=== PATIENT | male | born 1960 | race Caucasian/White ===

== ENCOUNTER 2019-05-31 12:36 | Day surgery (SDC) | payer BC ==
[2019-05-27 15:04] VITALS: BMI 41.1
[~2019-05-31 12:36] MED LIST: LACTATED RINGERS 1,000 ML IV SCH
[2019-05-31 12:58] VITALS: TEMP 98.4
[2019-05-31] MEDS ORDERED: LIDOCAINE 1% 20 ML VIAL (10MG/ML) FOR IV START INTRADERMA ONE (13:02)
[2019-05-31] MEDS ORDERED: PROPOFOL 10 MG/ML 20 ML VIAL IV ONE (14:27)
[2019-05-31] MEDS ORDERED: IV FLUID CONTINUATION 300 ML IV ONE (15:02)
--- NOTE | 2019-05-31 15:03 | P.PCN ---
Date of Procedure: 05/31/19 Description of Procedure: BRIEF HISTORY: Patient is a 59-year-old pleasant male scheduled for an elective colonoscopy as a part of screening for malignant neoplasm colon. He reports last colonoscopy 5 or 6 years ago. Prior episodes of polypectomy. Denies any change in bowel habits, blood per rectum or abdominal pain. PROCEDURE PERFORMED: Colonoscopy. PREOPERATIVE DIAGNOSIS: Screening for malignant neoplasm colon, last colonoscopy approximately 5 or 6 years ago, reports prior history of polypectomy. ESTIMATED BLOOD LOSS: Minimal. IV sedation per Anesthesia. PROCEDURE: After informed consent was obtained, the patient, was brought into the endoscopy unit. IV sedation was administered by Anesthesia under continuous monitoring. Digital rectal examination was normal. Initially the Olympus CF-190 flexible video colonoscope was then inserted in the rectum, gradually advanced into the cecum without any difficulty. Careful examination was performed as the scope was gradually being withdrawn. Ileocecal valve and the appendiceal orifice were visualized and appeared normal. Prep was excellent. Mucosa of the cecum, ascending colon, transverse colon, descending colon, sigmoid colon, and rectum appeared normal. Retroflexion was performed in the rectum and no lesions were seen. The patient tolerated the procedure well. IMPRESSION: Normal-appearing colon from rectum to cecum. RECOMMENDATIONS: Findings of this examination were discussed with the patient and his family. Okay to resume diet. Okay to resume medications. Would recommend repeat colonoscopy in 5 years given the reported history of colon polyps.
[2019-05-31 15:30] VITALS: BP 145/80; PULSE 60; RESP 18
== END 2019-05-31 15:43 | disposition home or self-care (01) ==
LOC: ORWHC2ENDO 12:36
PROVIDERS: ATTEND Internal Medicine
DX: Z12.11 Encounter for screening for malignant neoplasm of colon (principal); J45.909 Unspecified asthma, uncomplicated; G43.909 Migraine, unspecified, not intractable, without status migrainosus; Z86.010 Personal history of colon polyps; Z79.82 Long term (current) use of aspirin; Z79.899 Other long term (current) drug therapy; Z87.891 Personal history of nicotine dependence; Z90.49 Acquired absence of other specified parts of digestive tract; Z90.89 Acquired absence of other organs
CPT/HCPCS: J2704; G0105

== ENCOUNTER → 2020-06-12 | Outpatient (CLI) | payer BC ==
--- NOTE | 2020-06-12 20:22 | MR ---
EXAMINATION TYPE: MR pituitary wo/w con DATE OF EXAM: 06/12/2020 COMPARISON: NONE HISTORY: Hyperprolactinemia TECHNIQUE: Multiplanar, multisequence images of the brain and brainstem is performed without and with IV contras t, utilizing 14.5 mL intravenous Gadavist . The pituitary gland protocol. FINDINGS: Pituitary gland normal in size within sella turcica. Pituitary stalk shows normal enhanceme nt in the midline. Suprasellar cistern is maintained. Postcontrast images show no focal areas of none nhancement to suggest microadenoma. Optic chiasm is not effaced. No gross hydrocephalus. Brain volume age appropriate. IMPRESSION: No MRI evidence for pituitary microadenoma or macroadenoma.
== END | disposition home or self-care (01) ==
LOC: RADMRIMAIN 16:58
PROVIDERS: ATTEND Urology
DX: E22.1 Hyperprolactinemia (principal)
CPT/HCPCS: 70553; A9585

== ENCOUNTER 2022-05-01 06:51 | Day surgery (SDC) | payer BC ==
[~2022-05-01 06:51] MED LIST changes: -LACTATED RINGERS 1,000 ML IV SCH; +MOXIFLOXACIN HCL 0.5% DROPS 3 ML BTL OP PRN; +TETRACAINE 0.5% OPHTH (PF) DROPS 4 ML BTL OP PRN; +TIMOLOL 0.5% OPHTH DROPS 5 ML BTL OP PRN
[2022-05-01 07:15] VITALS: TEMP 98.5
[2022-05-01] MEDS: CYCLOPENTOLATE 1% OPHTH SOLN 2 ML BTL OP PRN ×2 (07:23→11:56)
[2022-05-01] MEDS: PHENYLEPHRINE 2.5% OPHTH DRP 2ML OP PRN ×2 (07:26→11:59)
[2022-05-01] MEDS: LACTATED RINGERS 1,000 ML IV SCH ×2 (07:37→12:10)
[2022-05-01] MEDS ORDERED: GLYCOPYRROLATE 0.2 MG/ML 2 ML VIAL ONE (12:08)
[2022-05-01] MEDS ORDERED: MIDAZOLAM 2 MG/2 ML VIAL ONE (12:08)
[2022-05-01] MEDS ORDERED: fentaNYL (PF) 50 MCG/ML 2 ML AMP ONE (12:08)
[2022-05-01] MEDS ORDERED: EPINEPHrine (PF) 0.3 ML in BALANCED SALT IRRIG SOLN COMB2 500 ML IRRIGATION ONE (12:10)
[2022-05-01] MEDS ORDERED: BALANCED SALT IRRIG SOLN COMB2 15 ML IRRIG.SOLN INTRAOCULA ONE (12:11)
[2022-05-01] MEDS ORDERED: HYALURONATE SODIUM INTRAOCULAR 1 EACH SYRINGE (12MG/ML) INTRAOCULA ONE (12:11)
[2022-05-01] MEDS ORDERED: LIDOCAINE 1% (PF) 10MG/ML VIAL MISCELLANE ONE (12:11)
--- NOTE | 2022-05-01 12:47 | P.OP ---
Date of Procedure: 05/01/22 Preoperative Diagnosis: NS & PSC Postoperative Diagnosis: same Procedure(s) Performed: PIOL< OS Implants: [id number] x 2.00 Anesthesia: MAC Surgeon: Sravan Alicia Pathology: none sent Condition: stable Disposition: same day Indications for Procedure: blurry vision Operative Findings: no complications
[2022-05-01] MEDS ORDERED: ATROPINE OPHTH SOLN 1% 5ML BTL LEFT EYE ONE (12:48)
[2022-05-01 13:07] VITALS: BP 114/78; PULSE 52; RESP 18
--- NOTE | 2022-05-02 16:30 | OP ---
OPERATIVE REPORT PROCEDURE PERFORMED: Phacoemulsification of cataract and intraocular lens implant of the left eye. PREOPERATIVE DIAGNOSES: 1. Nuclear sclerosis and posterior subcapsular cataract. 2. Regular astigmatism. POSTOPERATIVE DIAGNOSES: 1. Nuclear sclerosis and posterior subcapsular cataract. 2. Regular astigmatism. ANESTHESIA: Topical. ESTIMATED BLOOD LOSS: None. SPECIMEN TAKEN: None. NARRATIVE: After obtaining the appropriate consent, the patient was brought to the operating room. There, he was asked to sit upright, and the axes of 0 and 180 degrees were identified and marked with a gentian dennis marker. He was then placed in the proper supine position under cardiac monitoring and then prepped and draped in the usual sterile manner. He was approached from his left temporal side, and using previously- acquired corneal topography information, the axis of 170 degrees was identified and marked with a [employer] axis marker. This was followed by placement of a 5 mm Elsi ring previously inked in gentian dennis centrally over the Purkinje reflex. At the 5 o'clock position, an MVR blade was used to create a paracentesis port. Through this opening, 1% Xylocaine MPF 50:50 mixed with balanced salt solution was injected into the anterior chamber. This was followed by stabilization of the anterior chamber with Amvisc. At the 3 o'clock position, a 2.75 mm brendan keratome was used to create a self- sealing corneal flap incision in a Langerman's fashion. Through this opening, a cystotome was used to begin a continuous tear capsulorrhexis, which was completed using the Utrata forceps. Care was taken to ensure that the size of the rhexis was at least the size of the carlos from the Elsi ring on the patient's cornea. Hydrodissection and hydrodelineation of the lens were accomplished with balanced salt solution. Phacoemulsification of the lens utilizing phaco chop was accomplished in 7.9 seconds at 11% power. This was followed by additional Xylocaine MPF and removal of all remaining cortical material under irrigation and aspiration as well as careful polishing of the posterior capsule in the capsule vacuum mode. Amvisc was then used to stabilize the capsular bag using [employer]ees[employer] capsule polishing instruments. 360 degrees of the capsular bag were aggressively cleared of any remaining lens cortical material. This was followed by slightly enlarging the internal opening of the temporal incision, and a Bausch and Lomb Trulign Toric lens, model [id number], 17-diopter spherical equivalent posterior chamber intraocular lens was injected into the capsular bag without difficulty. The lens was rotated in additional 270 degrees to ensure that there was no remaining cortical material previously unidentified and then aligned with the 170- degree axis noted on the patient's cornea. All remaining viscoelastic was then removed from in and around the intraocular lens as well as the anterior chamber. Once the chamber was clear of any viscoelastic, the lens was tamponaded against the posterior capsule slightly with the tip of the irrigation and aspiration instrument. The eye was then brought to normal intraocular pressure through the paracentesis port. The wounds were dried with Weck-No sponges, and a small amount of Tisseel was placed over the temporal incision as well as the paracentesis port. He then received 2 drops of 0.5% timolol followed by 2 drops of moxifloxacin as well as 2 drops of 1% atropine. There were no complications from the procedure. He tolerated the procedure well and was returned to outpatient recovery in good condition. MMCHICHI / RONALDO: [id number] / CASPER
== END 2022-05-01 13:28 | disposition home or self-care (01) ==
LOC: OR 06:51
PROVIDERS: ATTEND Ophthalmology
DX: H25.041 Posterior subcapsular polar age-related cataract, right eye (principal); H52.222 Regular astigmatism, left eye; J45.909 Unspecified asthma, uncomplicated; G43.909 Migraine, unspecified, not intractable, without status migrainosus; Z87.891 Personal history of nicotine dependence; Z79.899 Other long term (current) drug therapy
CPT/HCPCS: 66984; C1762; V2632; V2788; J2250; J0171; J3010; J2001

== ENCOUNTER 2022-06-19 10:14 | Day surgery (SDC) | payer BC ==
[~2022-06-19 10:14] MED LIST changes: +DEXAMETHASONE SOD PHOSPHATE 4 MG/ML 1 ML VIAL IV ONE; +HYDROmorphone 0.5 MG/0.5 ML SYRINGE IVP PRN; +LACTATED RINGERS 1,000 ML IV SCH; +LIDOCAINE 1% (10MG/ML) FOR IV START INTRADERMA PRN; +MIDAZOLAM 2 MG/2 ML VIAL IV PRN; +ONDANSETRON 4 MG/2 ML VIAL IVP ONE
[2022-06-19] MEDS: CYCLOPENTOLATE 1% OPHTH SOLN 2 ML BTL OP PRN ×3 (11:40→11:52)
[2022-06-19] MEDS: PHENYLEPHRINE 2.5% OPHTH DRP 2ML OP PRN ×3 (11:43→11:55)
[2022-06-19 11:47] VITALS: TEMP 98.5
[2022-06-19] MEDS ORDERED: MIDAZOLAM 2 MG/2 ML VIAL ONE (12:29)
[2022-06-19] MEDS ORDERED: fentaNYL (PF) 50 MCG/ML 2 ML AMP ONE (12:29)
[2022-06-19] MEDS ORDERED: LACTATED RINGERS 1,000 ML IV ONE (13:29)
[2022-06-19 14:15] VITALS: BP 132/83; PULSE 47; RESP 15
--- NOTE | 2022-06-20 20:17 | OP ---
OPERATIVE REPORT PROCEDURES PERFORMED: Phacoemulsification of cataract and intraocular lens implant of the right eye. PREOPERATIVE DIAGNOSES: 1. Nuclear sclerosis. 2. Posterior subcapsular cataract. 3. Regular astigmatism. POSTOPERATIVE DIAGNOSES: 1. Nuclear sclerosis. 2. Posterior subcapsular cataract. 3. Regular astigmatism. ANESTHESIA: Topical. ESTIMATED BLOOD LOSS: None. SPECIMEN TAKEN: None. NARRATIVE: After obtaining the appropriate consent, the patient was brought to the operating room. There, he was asked to sit upright, and the axes 0 and 180 degrees were identified and marked with a gentian dennis marker. He was then placed in the proper supine position under cardiac monitoring and prepped and draped in the usual sterile manner. He was approached from his right temporal side and using previously acquired corneal topography information, the axis of 9 degrees was identified and marked with a [employer] axis marker. In addition, centered over the Purkinje reflex, a 5.5 mm Elsi ring inked with gentian dennis was placed over the patient's cornea. At the 11 o'clock position, an MVR blade was used to create a paracentesis port. Through this opening, 1% Xylocaine MPF 50:50 mix with balanced salt solution was injected into the anterior chamber. This was followed by stabilization of the anterior chamber with Amvisc. At the 9 o'clock position, a 2.5 mm keratome was used to create a self-sealing corneal flap incision. Through this opening, a cystotome was introduced to begin a continuous tear capsulorrhexis, which was completed using the Utrata forceps. Care was 6to ensure the size of the rhexis was at least the size of the 5.5 mm Elsi carlos on the patient's cornea. Hydrodissection and hydrodelineation of the lens were accomplished with balanced salt solution. Phacoemulsification of the lens utilizing phaco chop was accomplished in 6.96 seconds of 14% power. Additional Xylocaine MPF was instilled into the anterior chamber. This was followed by removal of the remaining cortical material as well as careful polishing of the posterior capsule in the capsule vacuum mode. Amvisc was then used to stabilize the capsular bag and using both __Rosette [employer] Zeeshan___ capsule polishing instruments, the underside of the anterior capsule was aggressively cleaned, removing any remaining cortical material hiding under the patient's iris. The temporal incision was enlarged slightly and a Bausch and Lomb [id number], 17-diopter posterior chamber intraocular lens was then inserted into the capsular bag without difficulty. The lens was rotated 360 degrees to ensure that there was no remaining cortical material impeding the placement of the haptics. Irrigation and aspiration were then used to remove the viscoelastic from in and around the intraocular lens as well as the anterior chamber. The tip of the IA instrument was then used to find the line, the index carlos of the implant with a 9-degree carlos placed on the patient's cornea at the beginning of the case. The eye was then brought to normal intraocular pressures through the paracentesis port and the eye was considered watertight to ensure watertight integrity. Tisseel was used to maintain that integrity for at least 24 hours. The patient then received 2 drops of 0.5% moxifloxacin, 2 drops of 0.5% timolol, and 2 drops of 1% atropine. He was then lightly patched and shielded in the usual manner. There were no complications from the procedure. He tolerated the procedure well and was returned to outpatient recovery in good condition. MMMAYAL / IJN: [id number] / CASPER
== END 2022-06-19 14:29 | disposition home or self-care (01) ==
LOC: OR 10:14
PROVIDERS: ATTEND Ophthalmology
DX: H25.11 Age-related nuclear cataract, right eye (principal); H52.221 Regular astigmatism, right eye; J45.909 Unspecified asthma, uncomplicated; E11.9 Type 2 diabetes mellitus without complications; Z79.899 Other long term (current) drug therapy; Z96.1 Presence of intraocular lens; Z48.810 Encounter for surgical aftercare following surgery on the sense organs; Z98.49 Cataract extraction status, unspecified eye
CPT/HCPCS: 66984; V2632; V2788; J2250; J3010